=== PATIENT | male | born 1945 | race Caucasian/White ===

== ENCOUNTER 2017-01-21 21:41 | Emergency (ER) | payer MEDICARE ==
[~2017-01-21] VITALS: Ht 175.3 cm; Wt 87.7 kg
[~2017-01-21 21:41] MED LIST: ASPI-628 PO; ATOR10TA66 PO; DIPH25CA58 PO; FLUT16SP NS; LISI-567 PO; MULT-1007 PO; SILD50TA PO; TERA5CAP6 PO; [UNRECOGNIZED DRUG - CODE] PO
[2017-01-21 21:45] VITALS: BP 181/96; PULSE 62; RESP 16; O2SAT 98
[2017-01-21] MEDS ORDERED: 0.9% Sodium Chloride 1,000 ML IV ONE (22:21)
--- NOTE | 2017-01-21 22:24 | ED.REPORT ---
HPI-Abd Pain M 40 and Over Date of Service Jan 21, 2017 ED Provider: Mejia Mercedes MD Pt is a 71 y/o male with a history of nephrolithiasis and hypertension who presents to the ED c/o LLQ pain onset 1829. Additional symptoms include vomiting since resolved. He denies back pain, hematuria, fever, nausea, diarrhea , constipation, cough, or chills. He states that his symptoms are similar to when he had a nephrolithiasis 20 years ago. His last bowel movement was about 1930. Medication list includes lisinopril, atorvastatin, and terazosin. Nursing Notes Stated Complaint: LEFT SIDE PAIN Chief Complaint: Male Abdominal Pain Nursing Notes Reviewed: Yes Allergies: Coded Allergies: Penicillins (Verified Allergy, Unknown, 01/21/17) PER PT Scheduled Aspirin (Aspir 81) 81 Mg Tablet.dr 81 MG PO DAILY Atorvastatin Calcium (Atorvastatin Calcium) 10 Mg Tablet 10 MG PO DAILY Fluticasone Propionate (Fluticasone Propionate Nasal) 16 Gm [place].susp 1 SPRAY NS BID Lisinopril (Lisinopril) 20 Mg Tablet 20 MG PO DAILY Multivitamin (Multi-Vitamin Daily) 1 Each Tablet 1 EACH PO DAILY Terazosin (Terazosin) 5 Mg Capsule 5 MG PO HS Scheduled PRN Alprazolam (Alprazolam Intensol) 1 Mg/1 Ml Oral.conc 0.5 MG PO TID PRN PRN For Anxiety Diphenhydramine HCl (Antihistamine) 25 Mg Capsule 25 MG PO HSPMR PRN PRN For Sleep Sildenafil Citrate (Viagra) 50 Mg Tablet 50 MG PO UD PRN PRN OTH General Time Seen by MD: 22:13 Chief Complaint Abdominal pain Hx Obtained From: Patient Arrived By: Walk-in Sudden in Onset?: Yes Onset Occurred: 1 - 4 hours ago Symptom Duration: Constant Location: : LLQ Quality: Painful Radiation: : Does not radiate Severity: Current: Mild Severity: Maximum: Moderate Recent Healthcare: No recent doctor visit, No recent hospitalization Similar Sx Previous: Yes Past Medical History Past Medical History Nephrolithiasis 20 years ago Arthritis Reports: Hypertension Smoking History Former Smoker Social History Other Social History: Good social support Ambulatory Status Independent Review of Systems Constitutional: Denies: Chills, Fever Respiratory: Denies: Non-productive cough, Prod cough, clear GI: Reports: Abdominal pain (LLQ), Vomiting (resolved), Denies: Constipation, Diarrhea, Nausea Male: Denies Hematuria Musculoskeletal: Denies: Back pain Complete sys rev & neg: except as marked. Physical Exam Initial Vital Signs Vital Signs (First) Date Time Temp Pulse Resp B/P Pulse Ox O2 Delivery O2 Flow Rate FiO2 01/21/17 21:45 36.8 62 16 181/96 98 Room Air Initial VS: Reviewed Neck: Supple, Full range of motion Extremities: Vascular intact, Neuro intact, No swelling, No tenderness Skin: Warm, Dry, No cyanosis Neurologic: Alert, Oriented, Nonfocal Psychiatric: Mood/affect normal, Behavior normal, Normal thought content General/Constitutional: Awake, Alert Respiratory / Chest: Atraumatic, Breath sounds NL, Breath sounds = bilat, No respiratory distress Cardiovascular: Heart rate NL, Regular rhythm, Heart sounds NL, No murmurs Abdomen: Atraumatic, Soft, No guarding, No rebound Tenderness/Guarding/Rebound: Positive: Tender LLQ... (Mild) Back: Full range of motion, No CVA tenderness Interpretation & Diagnostics Lab Results Interpretation Result Diagram: 01/21/17 2255 01/21/17 2255 Test 01/21/17 22:55 01/21/17 23:51 White Blood Count 15.2th/mm3 (3.8-10.1) Red Blood Count 4.93mil/mm3 (4.40-5.80) Hemoglobin 14.8g/dL (13.8-17.2) Hematocrit 43.6% (41.0-50.0) Mean Corpuscular Volume 88.4fL (81-100) Mean Corpuscular Hemoglobin 30.0pg (27.0-35.0) Mean Corpuscular Hemoglobin Concent 33.9% (32.0-37.0) Red Cell Distribution Width 12.6% (12.3-15.4) Platelet Count 231bil/L (150-400) Neutrophils (%) (Auto) 79.9% (40-74) Lymphocytes (%) (Auto) 12.1% (14-46) Monocytes (%) (Auto) 6.5% (4-12) Eosinophils (%) (Auto) 0.7% (0-5) Basophils (%) (Auto) 0.3% (0-3) Sodium Level 138mEq/L (134-144) Potassium Level 4.6mEq/L (3.5-5.2) Chloride Level 102mEq/L (97-108) Carbon Dioxide Level 21mmol/L (18-29) Blood Urea Nitrogen 24mg/dL (8-27) Creatinine 1.14mg/dL (0.76-1.27) Estimat Glomerular Filtration Rate 67mL/min (>59) Glucose Level 171mg/dL (60-99) Calcium Level 10.7mg/dL (8.5-10.1) Magnesium Level 2.0mg/dL (1.6-2.6) Total Bilirubin 0.3mg/dL (0.0-1.2) Aspartate Amino Transf (AST/SGOT) 23U/L (0-50) Alanine Aminotransferase (ALT/SGPT) 28U/L (0-44) Alkaline Phosphatase 91U/L (25-160) Total Protein 8.0g/dL (6.4-8.4) Albumin 4.5g/dL (3.4-5.0) Lipase 39U/L (13-60) Hold Garvin Top Tube Received (Received) Urine Color Yellow (YELLOW) Urine Appearance Clear (CLEAR,HAZY) Urine pH 5.5 (5.0-8.0) Urine Specific [place] 1.025 (1.003-1.035) Urine Protein 30mg/dL (NEG,TRACE) Urine Glucose (UA) Negativemg/dL (NEGATIVE) Urine Ketones Negativemg/dL (NEGATIVE) Urine Occult Blood Moderate (NEGATIVE) Urine Nitrite Negative (NEGATIVE) Urine Bilirubin Negative (NEGATIVE) Urine Urobilinogen Normalmg/dL (NORMAL) Urine Leukocyte Esterase Negative (NEGATIVE) Urine RBC 3-10/hpf (0-2) Urine WBC 0-5/hpf (0-5) Urine Epithelial Cells Occasional/hpf (NONE-MOD) Urine Crystals None seen (NONE SEEN) Urine Bacteria Few/hpf (NONE-FEW) Urine Hyaline Casts None/lpf (NONE) Urine Granular Casts None seen (NONE SEEN) Urine Waxy Casts None seen (NONE SEEN) Urine Red Blood Cell Casts None seen (NONE SEEN) Urine White Blood Cell Casts None seen (NONE SEEN) Urine Mucus None seen (None Seen) Urine Trichomonas None seen (NONE SEEN) Urine Yeast None (NONE SEEN) Urinalysis Comment None Urine Culture Reflexed Not indicated CT Abd / Pelvis Interpretation Conclusion: Large renal cell carcinoma measuring 8 cm in diameter replacing the lower pole of the kidney with invasion of the left renal vein. Infrarenal abdominal aortic aneurysm measuring 6 cm in diameter. Atherosclerotic changes are seen in the lateral aspect with an ulceration. No signs of hemorrhage. Tiny, less than 5 mm nodule left lung base is nonspecific. Metastasis cannot be excluded. Diverticulosis without diverticulitis. Left-sided varicocele in the inguinal canal. Tiny nonobstructing calculus and a small cyst right kidney. Study type: Abdominal CT IV contrast Interpretation / Wet Read by: Interpret - Radiologist Re-Eval/Medical Decision Med Decision/Clinical Course 71-year-old male presenting with left lower abdominal pain. CT scan shows a new diagnosis of left renal cell carcinoma. He also has a 6 cm abdominal aortic aneurysm which is also new diagnosis which is asymptomatic. He will follow up with oncology as well as primary doctor for vascular surgery referral. Return precautions given. Source of Hx: Old records Time of Eval: 00:32 Re-Evaluation/Progress Note: Pt rechecked. Discussed all lab and CT results. Discussed plan for discharge. Pt agrees and understands plan. Gave all RTER and follow-up directions. All questions addresssed at this time. Counseled Regarding: Diagnosis, Lab results, Need for follow-up, When/why to return to ED Discharge & Departure Departure Notes Address: [address] [place] [address] [address], [place] [address] Primary Impression: Renal cell carcinoma Laterality: left Qualified Code: C64.2 - Malignant neoplasm of left kidney, except renal pelvis Additional Impressions: Aortic aneurysm Aortic location: unspecified Presence of rupture: without rupture Qualified Code: I71.9 - Aortic aneurysm of unspecified site, without rupture Lung nodule Disposition: Home Vital Signs - All Vital Signs Date Time Temp Pulse Resp B/P Pulse Ox O2 Delivery O2 Flow Rate FiO2 01/22/17 01:13 36.8 71 16 159/73 98 Room Air 01/21/17 21:45 36.8 62 16 181/96 98 Room Air )( All Prior VS Reviewed: Yes Condition: Stable Additional Instructions: Your CAT scan shows that you have a renal cell carcinoma in your left kidney. Please call oncologist tomorrow for follow-up appointment. It also shows that you have a fairly large aortic aneurysm that you will need to go to your primary care doctor for a referral to vascular surgery. The CAT scan also shows that you have a 5 mm nodule in your left lung that your primary care doctor will need to do work-up on. Follow-up with your primary care doctor in the next couple of days for a recheck of the things listed above. Please return to the emergency department if you experience any abdominal pain, chest pain, back pain, fevers, nausea, vomiting, lightheadedness, or passing out. Oncologist: Dr. Darell Gan Address: [address] [place] [address] [address], [place] [address] Referrals: Sony Jackson MD (PCP/Family) Darell Gan MD Scribe Attestation Portions of this note were transcribed by Tamara Hopson. I, Dr. Mercedes, personally performed the history, physical exam and medical decision-making; I reviewed and confirmed the accuracy of the information in the transcribed note. copies to: Sony Jackson MD; Darell Gan MD, Ben M MD Jan 21, 2017 22:24 Tamara Hopson Jan 21, 2017 23:09
[2017-01-21] MEDS ORDERED: Ondansetron 2 mg/mL 2 mL Inj IVPUSH PRN (22:25)
[2017-01-21 22:58] LABS: BASOPHILS % (AUTO) 0.3 % (0-3); EOSINOPHILS % (AUTO) 0.7 % (0-5); MONOCYTES % (AUTO) 6.5 % (4-12); Mean Corpuscular Volume 88.4 fL (81-100); NEUTROPHILS % (AUTO) 79.9 % (40-74); Platelet Count 231 bil/L (150-400)
[2017-01-21 23:59] LABS: APPEARANCE,URINE CLEAR (CLEAR,HAZY); COLOR,URINE YELLOW (YELLOW); OCCULT BLOOD,URINE MODERATE (NEGATIVE); PH,URINE 5.5 (5.0-8.0)
[2017-01-22] LABS: UROBILINOGEN,URINE NORMAL (NORMAL)
[2017-01-22] MEDS ORDERED: _oxyCODONE/APAP 5-325 mg Tablet PO PRN (00:35)
[2017-01-22 01:13] VITALS: BP 159/73; PULSE 71; RESP 16; O2SAT 98
--- NOTE | 2017-01-22 07:57 | DRSVH ---
PROCEDURE: CT ABDOMEN AND PELVIS WITH CONTRAST ([id number]) INDICATIONS: LLQ pain TECHNIQUE: After the administration of intravenous contrast, 5 mm thick sections acquired from the diaphragm to the symphysis. 5 mm coronal and sagittal reformats were acquired. For radiation dose reduction, the following was used: automated exposure control, adjustment of mA and/or kV according to patient siz e. COMPARISON: None. FINDINGS: Image quality: Excellent. ABDOMEN: Lung bases: There is 5 mm left lung base pulmonary nodule (se 3 im 12). Otherwise the lung bases are clear. Heart size is normal. Solid organs: There is 11 x 5 mm lobulated area of low-density in the right lobe liver most consisten t with a benign cyst. Otherwise the liver is normal. Pancreatic calcifications may represent sequela of previous pancreatitis. Otherwise the pancreas is normal. Spleen and adrenal glands are normal. Mejia ign right renal cyst with punctate nonobstructing renal calculus. There is a 9.9 x 10.3 x 8.8 cm mass in inferior left renal pole with indistinct margins with the perirenal fat possibly representing inv asion of the perirenal fat. The left renal vein is expanded most consistent with tumor involvement wh ich does not reach the IVC. Mass is consistent with a renal cell carcinoma. Prostatic hypertrophy wit h calcifications. Peritoneum and bowel: Diverticulosis with no evidence of acute diverticulitis. Otherwise bowel loops demonstrate normal wall thickness and caliber. No free fluid or air. The appendix is not identified. There are no secondary signs of acute appendicitis. Nodes and vessels: No retroperitoneal or mesenteric adenopathy by size criteria. Infrarenal saccular abdominal aortic aneurysm extending to the left abdomen measures 5.4 x 7.1 CM extending 6.4 CM in le ngth. Miscellaneous: Left inguinal hernia containing dilated vascular structures. Right inguinal hernia con taining fat. PELVIS: Genitourinary: Bladder wall thickness is normal. Miscellaneous: No inguinal hernias or adenopathy. Bones: No suspicious bony lesions. No vertebral body compression fractures. IMPRESSION: 1. Large left renal cell carcinoma which involves the left renal vein and possibly invades the perire nal fat. No extension to the IVC. 2. Tiny hepatic nodule likely represents a benign cyst. Recommend confirmation with ultrasound given the renal cell carcinoma. 3. Left lower lobe nodule is indeterminate. Given the large renal cell carcinoma recommend a chest CT with contrast to evaluate for metastatic disease. 4. Mild diverticulosis with no evidence of acute diverticulitis. 5. There are no discrepancies with the preliminary report. Dictated by: Ruel Knight M.D. on 01/22/2017 at 7:41 Approved by: Ruel Knight M.D. on 01/22/2017 at 7:55
== END 2017-01-22 01:14 | disposition home or self-care (01) ==
LOC: SED 21:41
DX: C64.2 Malignant neoplasm of left kidney, except renal pelvis (principal); I71.9 Aortic aneurysm of unspecified site, without rupture; R91.1 Solitary pulmonary nodule; I10 Essential (primary) hypertension; Z79.82 Long term (current) use of aspirin; Z87.891 Personal history of nicotine dependence; Z88.0 Allergy status to penicillin
CPT/HCPCS: 36415; 74177; 80053; 81000; 83690; 83735; 85025; 96361; 96374; 96375; 99285; J1885; J2270; J2405; J7030; Q9967